=== PATIENT | female | born 1940 | race Caucasian/White ===

== ENCOUNTER → 2016-08-21 | Outpatient (CLI) | payer MEDICARE, OTHER ==
[~2016-08-21] MED LIST: ASA CHILDREN'S81 MG PO; CALTRATE-600 D600 MG PO; COLACE-DPS100 MG PO; COQ-10100 MG PO; COZAAR DPS50 MG PO; FLEXERIL DPS5 MG PO; NORCO 5-325 TA1 EACH PO; NORVASC DPS10 MG PO; PRAVACHOL40 MG PO; TOPROL XL DPS50 MG PO; TYLENOL DPS325 MG PO; ULTRAM DPS50 MG PO; VITAMIN D31000 UNIT PO; ZANAFLEX4 MG PO
== END | disposition home or self-care (01) ==
LOC: RAD.S 07:29
DX: M54.2 Cervicalgia (principal); M25.78 Osteophyte, vertebrae

== ENCOUNTER 2016-10-08 05:37 | Observation (INO) | payer MEDICARE, OTHER ==
[~2016-10-08] VITALS: Ht 161.3 cm; Wt 76.4 kg
[2016-10-10] MEDS ORDERED: FLEXERIL DPS5 MG PO (17:00)
[2016-10-10] MEDS ORDERED: NORCO 5-325 TA1 EACH PO (17:00)
--- NOTE | 2016-10-13 13:27 | OR ---
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 PROCEDURE: 1. Anterior cervical diskectomy for decompression of thecal sac and neural foramen, C5-C6. 2. Anterior interbody fusion, C5-C6, with implant of structural tricortical allograft. 3. Anterior instrumentation, C5-C6. TOILET ATTENDANT: Socorro Reddy APRN DESCRIPTION OF PROCEDURE: After gaining informed consent, the patient was taken to the operative theater, placed under general endotracheal anesthesia in supine position. A time-out was utilized to ascertain the correct site and side of surgery as well as other pertinent patient historical information. Counts were obtained in the beginning and end of the case with no change betwixt the two. Antibiotics were given within 1 hour of incision. The Zamudio-Wells tongs were placed two fingerbreadths superior to the pinna and then placed under 10 pounds of traction which was removed at the time of instrumentation. This was done before prepping and draping in usual sterile fashion. An incision was fashioned in the anterior neck in already present horizontal crease, taking this down through the paratracheal and paraesophageal groove to the anterior spinal column. There was no sign of complication during the dissection. The fluoroscope was brought into the field and C5-C6 level was delineated. This was marked and then the monopolar electrocautery was used to take up the medial aspect of the longus colli musculature, and the Physical Education Specialist retractor system was then placed. At this point, attention was turned to diskectomy. Various curettes, rongeurs, and a high-speed drill was used to resect as much of the disk as was possible, drilling back the endplates, taking it down to the posterior longitudinal ligaments and finding disk material and resecting this as well as the ligament out into the neural foramen bilaterally, being able to sound into the neural foramen with no sign of further compressive etiology. Pristine hemostasis was obtained and then appropriately-sized allograft structural spacer was brought into the field and very cautiously tapped into place. The anterior spine was then instrumented drilling holes for the screws and then placing self-drilling self-tapping screws at C5 and C6, and torquing the cam locks to appropriate setting. Pristine hemostasis was obtained. Attention was turned to closure. The wound was closed with ADMIT: 10/08/2016 RM/LOC: 506 [facility] MR#: [id number] [address] [place] [id number] [facility] [place] [address] Operative/Delivery Room Report SEX: F AGE: 76 : 1940 simple inverted interrupted 2-0 Vicryl in the hypodermic tissue and subcuticular 3-0 Stratafix with Steri-Strips on the skin. Mac BustosBarry assisted with suction, retraction, and closure at the end of the case. COMPLICATIONS: None. ESTIMATED BLOOD LOSS: Charted. SPECIMEN: Disk. DISPOSITION: Extubated and taken to postanesthesia care unit. Leo Langley MD/ nicole JOB #: [id number] CC: Leo Langley, Attending Physician Susan Valentine MD, Family Physician
[2016-11-14] MEDS ORDERED: PRAVACHOL40 MG PO (10:45)
[2016-11-14] MEDS ORDERED: ASA CHILDREN'S81 MG PO (10:45)
[2016-11-14] MEDS ORDERED: COQ-10100 MG PO (10:45)
[2016-11-14] MEDS ORDERED: TOPROL XL DPS50 MG PO (10:45)
[2016-11-14] MEDS ORDERED: COZAAR DPS50 MG PO (10:45)
[2016-11-14] MEDS ORDERED: NORVASC DPS10 MG PO (10:45)
[2016-11-14] MEDS ORDERED: CALTRATE-600 D600 MG PO (10:45)
[2016-11-14] MEDS ORDERED: VITAMIN D31000 UNIT PO (10:45)
[2016-11-14] MEDS ORDERED: ULTRAM DPS50 MG PO (10:46)
[2016-11-14] MEDS ORDERED: COLACE-DPS100 MG PO (10:46)
[2016-11-14] MEDS ORDERED: TYLENOL DPS325 MG PO (10:46)
[2016-11-14] MEDS ORDERED: ZANAFLEX4 MG PO (10:47)
== END 2016-10-09 12:14 | disposition home or self-care (01) ==
LOC: WOR 05:37 → 5MS 05:37 → WOR 05:37 → 5MS 08:45
PROVIDERS: ADMIT Neurological Surgery
PROC: 0RG10K0 Fusion of Cervical Vertebral Joint with Nonautologous Tissue Substitute, Anterior Approach, Anterior Column, Open Approach (ICD-10-PCS; principal; 2016-10-08)
PROC: 0RB30ZZ Excision of Cervical Vertebral Disc, Open Approach (ICD-10-PCS; principal; 2016-10-08)
DX: M50.122 Cervical disc disorder at C5-C6 level with radiculopathy (principal); M48.02 Spinal stenosis, cervical region; M47.22 Other spondylosis with radiculopathy, cervical region; I25.2 Old myocardial infarction; I10 Essential (primary) hypertension; M19.90 Unspecified osteoarthritis, unspecified site; K44.9 Diaphragmatic hernia without obstruction or gangrene; Z79.899 Other long term (current) drug therapy; K21.9 Gastro-esophageal reflux disease without esophagitis; Z88.8 Allergy status to other drugs, medicaments and biological substances; Z88.1 Allergy status to other antibiotic agents; Z88.0 Allergy status to penicillin; Z79.82 Long term (current) use of aspirin

== ENCOUNTER → 2016-11-06 | Outpatient (CLI) | payer MEDICARE, OTHER | END | disposition home or self-care (01) | LOC: PTH.S 10-07 08:35 | DX: Z01.812 Encounter for preprocedural laboratory examination (principal); Z79.2 Long term (current) use of antibiotics ==

== ENCOUNTER 2016-11-12 05:26 | Inpatient (IN) | payer MEDICARE, OTHER ==
[~2016-11-12] VITALS: Ht 161.3 cm; Wt 73.5 kg
--- NOTE | ~2016-11-12 | DS ---
ADMIT: 11/12/2016 RM/LOC: 303 [facility] MR#: [id number] [facility]#: [id number] 26[address] [facility] [address] [place] [phone] [place] [address] General Discharge Summary SEX: F AGE: 76 : 1940 ADMISSION DATE: 11/12/2016 DISCHARGE DATE: 11/13/2016 SERVICE: Neurosurgery. REASON FOR ADMISSION: 1. Lumbar stenosis with neurogenic claudication. 2. Low back pain. 3. Lumbosacral radiculopathy. PROCEDURE: Minimally invasive lumbar laminectomy at L3 through 5. HOSPITAL COURSE: Ms. Cage tolerated her procedure well. Postoperatively, in the PACU, she was having some hypotension. She was given a liter of saline. She continued to have some low blood pressures; therefore, she was admitted to the floor overnight for monitoring and care. She was started on some normal saline at 75 mL an hour. Postop day #1, she was awake and alert. She was afebrile, and her vital signs were stable. Her blood pressure had come back up nicely. She was moving all extremities x4 with 5/5 strength. Her dressing was clean, dry, and intact. Her IV fluid was discontinued. She worked with Physical Therapy and Occupational Therapy and tolerated this quite well. After lunch, her blood pressure had remained stable. She was ambulating, urinating, and defecating per her norm and was requesting discharge home. DISCHARGE CONDITION: Good. MEDICATIONS: 1. Colace 100 mg p.o. b.i.d. 2. Tylenol 650 mg p.o. q.4 hours p.r.n. 3. Ultram 50 mg p.o. q.4 hours p.r.n. 4. Zanaflex 4 mg p.o. q.8 hours p.r.n. 5. Amlodipine 10 mg daily. 6. Metoprolol succinate 50 mg daily. 7. Losartan 50 mg daily. 8. Pravastatin 40 mg daily. 9. Aspirin enteric-coated 81 mg daily. 10.CoQ10, 200 mg daily. 11.Vitamin D3, 1000 units daily. 12.Calcium 600 mg daily. DISCHARGE INSTRUCTIONS: Per Dr. Langley. She can have a regular diet. She may shower, she should not take any tub baths, she should pat her incision ADMIT: 11/12/2016 RM/LOC: 303 [facility] MR#: [id number] [address] [address] [facility] [place] [address] General Discharge Summary SEX: F AGE: 76 : 1940 dry. She should not lift anything greater than 15 pounds[address] She should not drive until she is seen in the clinic. She should not do any repetitive bending and twisting of her surgical site. She will call with any questions or concerns including neurological worsening, signs or symptoms of infection, or any other issues. FOLLOWUP: She will follow up with Socorro in clinic in 2 weeks. DISPOSITION: She was discharged home. Total [id number] time for the discharge planning and care coordination was 30 minutes. Socorro Reddy APRN / Leo Langley MD / nicole JOB #: [id number] CC: Leo Langley MD, Attending Physician Susan Valentine, Family Physician
[~2016-11-12 05:26] MED LIST changes: -ASA CHILDREN'S81 MG PO; -CALTRATE-600 D600 MG PO; -COLACE-DPS100 MG PO; -COQ-10100 MG PO; -COZAAR DPS50 MG PO; -NORVASC DPS10 MG PO; -PRAVACHOL40 MG PO; -TOPROL XL DPS50 MG PO; -TYLENOL DPS325 MG PO; -ULTRAM DPS50 MG PO; -VITAMIN D31000 UNIT PO; -ZANAFLEX4 MG PO
--- NOTE | 2016-11-13 12:28 | OR ---
ADMIT: 11/12/2016 RM/LOC: 519 [facility] MR#: [id number] [address] [address] NISA GRA[place] [address] Operative/Delivery Room Report SEX: F AGE: 76 : 1940 SURGERY DATE: 11/12/2016 SURGEON: Leo Langley MD PREOPERATIVE DIAGNOSES: Severe lumbar stenosis with neurogenic claudication and radiculopathy with severe pain and radiculopathy, lumbar 3 to 5. POSTOPERATIVE DIAGNOSES: Severe lumbar stenosis with neurogenic claudication and radiculopathy with severe pain and radiculopathy, lumbar 3 to 5. PROCEDURE: Minimally invasive lumbar 3-4 and lumbar 4-5 laminectomy with medial undercutting of the facet where necessary for decompression of the thecal sac both centrally as well as neural foramen with intraoperative use of microscopy with microsurgical dissection technique. DESCRIPTION OF PROCEDURE: After gaining informed consent, the patient was taken to the operative theater, placed under general endotracheal anesthesia in supine position, turned prone on a Gareth table with all pressure points purposely padded prior to performing the procedure. She was prepped and draped in usual sterile fashion. A time-out was utilized to ascertain the correct site and side of surgery as well as other pertinent patient historical information. Counts were obtained at the beginning and end of the case with no change betwixt the two. Antibiotics were given before 1 hour of incision. Fluoroscope was brought into the field and the lumbar 3-4 and 4-5 levels were delineated making a stab incision over top of this region and then sequentially dilating utilizing a tubular retractor system and docking the MIS system over top of the pedicle at L4 wanding up to 3-4 and down to 4-5. This was then locked into place and microscope was brought into the field, and the rest of the case was done with microsurgical dissection technique. Attention was then turned to laminectomy. Various curettes, rongeurs, and a high-speed drill were used to resect the lamina at the lamina facet junction undercutting this ipsilaterally at 3-4, resecting ligamentum flavum and widely decompressing the thecal sac. This was then very cautiously mobilized and was protected, drilled a bit. The contralateral side was undercut and drilled off allowing more room extending out into neural foramen. At the completion of this segment, I was able to pass the dental instrument out the neural foramen on both sides with no further sign of compressive etiology. The tube was then wanded down to the 4-5 level in a similar fashion, starting on the ipsilateral side, the ligamentum flavum was removed after removing the lamina and then this was undercut to the contralateral side very similarly. I was able to sound into neural foramen at both sides 4-5 with no sign of further compressive etiology. Once this was completed, Pristine hemostasis was ADMIT: 11/12/2016 RM/LOC: 519 [facility] MR#: [id number] [address] [place] [id number] [address] SYED [address] [place] [address] Operative/Delivery Room Report SEX: F AGE: 76 : 1940 obtained. The thoracodorsal fascia was closed with simple interrupted 2-0 Vicryl, 10 mL of Marcaine was injected on each side of the paraspinous musculature and the wound was closed with simple inverted interrupted 2-0 Vicryl and subcuticular 3-0 Stratafix on the skin. COMPLICATIONS: None. ESTIMATED BLOOD LOSS: Charted. SPECIMEN: Posterior elements. DISPOSITION: Extubated and taken to postanesthesia care unit. Leo Langley MD/ nicole JOB #: [id number] CC: Leo Langley, Attending Physician Susan Valentine MD, Family Physician
[2016-11-14] MEDS ORDERED: VITAMIN D31000 UNIT PO (10:45)
[2016-11-14] MEDS ORDERED: CALTRATE-600 D600 MG PO (10:45)
[2016-11-14] MEDS ORDERED: COZAAR DPS50 MG PO (10:45)
[2016-11-14] MEDS ORDERED: COQ-10100 MG PO (10:45)
[2016-11-14] MEDS ORDERED: TOPROL XL DPS50 MG PO (10:45)
[2016-11-14] MEDS ORDERED: ASA CHILDREN'S81 MG PO (10:45)
[2016-11-14] MEDS ORDERED: NORVASC DPS10 MG PO (10:45)
[2016-11-14] MEDS ORDERED: PRAVACHOL40 MG PO (10:45)
[2016-11-14] MEDS ORDERED: TYLENOL DPS325 MG PO (10:46)
[2016-11-14] MEDS ORDERED: ULTRAM DPS50 MG PO (10:46)
[2016-11-14] MEDS ORDERED: COLACE-DPS100 MG PO (10:46)
[2016-11-14] MEDS ORDERED: ZANAFLEX4 MG PO (10:47)
== END 2016-11-13 12:41 | disposition home or self-care (01) | DRG 517 ==
LOC: WOR 05:26 → 3ICU 05:26 → 5MS 09:14 → 3ICU 13:46
PROVIDERS: ADMIT Neurological Surgery
PROC: 01NB0ZZ Release Lumbar Nerve, Open Approach (ICD-10-PCS; principal; 2016-11-12)
DX: M48.06 Spinal stenosis, lumbar region (principal); I95.9 Hypotension, unspecified; I10 Essential (primary) hypertension; I25.10 Atherosclerotic heart disease of native coronary artery without angina pectoris; K44.9 Diaphragmatic hernia without obstruction or gangrene; E78.5 Hyperlipidemia, unspecified; G25.81 Restless legs syndrome; G47.00 Insomnia, unspecified; M81.0 Age-related osteoporosis without current pathological fracture; Z79.82 Long term (current) use of aspirin; Z82.49 Family history of ischemic heart disease and other diseases of the circulatory system; Z98.1 Arthrodesis status